=== PATIENT | female | born 1970 | race Caucasian/White ===

== ENCOUNTER 2019-11-17 18:24 | Emergency (ER) | payer MEDICAID ==
[~2019-11-17] VITALS: Ht 157.5 cm; Wt 55.0 kg
--- NOTE | 2019-11-17 19:07 | NUR ---
PT HERE WITH C/O ABDOMINAL PAIN AND RIGHT FLANK PAIN THAT STARTED YESTERDAY AND GOT WORSE THIS MORNING. PT AAO X 4, NAD, ROOM AIR, CALL LIGHT WITHIN REACH, SIDERAIL X [address]. PT STATED "I AM SUPER ITCHY, CAN I GET SOME CREAM? I LIVE AT [facility] AND THEY HAVE BED BUGS AND I HAVE BITES ALL OVER." DIRECTOR MOBILE NOTIFIED, TECH TO SHOWER AND BAG BELONGINGS.
--- NOTE | 2019-11-17 19:36 | NUR ---
AT BEDSIDE FOR EXAM S/P DECON.
[2019-11-17] MEDS ORDERED: ACETAMINOPHEN 500 MG TABLET PO ONE (20:00)
[2019-11-17] MEDS ORDERED: KETOROLAC 30 MG/1 ML IM ONE (20:00)
[2019-11-17] MEDS ORDERED: ONDANSETRON ODT 4 MG PO ONE (20:00)
[2019-11-17 20:02] LABS: BASOPHILS # (AUTO) 0.08 x10^3/uL (0-0.1); BASOPHILS % (AUTO) 1 % (0-1); EOSINOPHILS # (AUTO) 0.15 x10^3/uL (0-0.4); EOSINOPHILS % (AUTO) 1 % (1-7); LYMPHOCYTES # (AUTO) 2.18 x10^3/uL (1-3.4); LYMPHOCYTES % (AUTO) 20 % (22-44); MD NO; MEAN CORPUSCULAR HEMOGLOBIN 28.1 pg (27.0-34.8); MEAN CORPUSCULAR HGB CONC 32.8 g/dL (32.4-35.8); MEAN CORPUSCULAR VOLUME 85.7 fL (80-100); MEAN PLATELET VOLUME 8.6 fL (7.4-10.4); MONOCYTES # (AUTO) 0.69 x10^3/uL (0.2-0.8); MONOCYTES % (AUTO) 6 % (2-9); NEUTROPHILS # (AUTO) 7.81 x10^3/uL (1.8-6.8); NEUTROPHILS % (AUTO) 72 % (42-75); PLATELET COUNT 346 x10^3/uL (130-400); RED BLOOD COUNT 4.51 x10^6/uL (3.82-5.3); RED CELL DISTRIBUTION WIDTH 13.6 % (9.6-15.2)
[2019-11-17] MEDS ORDERED: KETOROLAC 30 MG/1 ML ONE (20:09)
[2019-11-17] MEDS ORDERED: ONDANSETRON ODT 4 MG ONE (20:09)
[2019-11-17] MEDS ORDERED: ACETAMINOPHEN 500 MG TABLET ONE (20:09)
[2019-11-17 20:11] LABS: MICROSCOPIC NOT IND
[2019-11-17 20:13] LABS: ALBUMIN 3.4 g/dL (3.4-5.0); ANION GAP 3 mmol/L (5-15); CALCIUM 8.6 mg/dL (8.5-10.1); CHLORIDE 107 mmol/L (98-107); CREATININE 0.69 mg/dL (0.55-1.02)
--- NOTE | 2019-11-17 20:14 | NUR ---
PT MEDICATED PER ORDER.
[2019-11-17 20:16] LABS: ALANINE AMINOTRANSFERASE 20 U/L (12-78); ALKALINE PHOSPHATASE 76 U/L (45-117); BILIRUBIN,TOTAL 0.2 mg/dL (0.2-1.0); TOTAL PROTEIN 7.2 g/dL (6.4-8.2)
[2019-11-17 20:17] LABS: CULTURE INDICATED? NO
[2019-11-17 20:25] LABS: HCG UR SG 1.019 (1.003-1.030)
--- NOTE | 2019-11-17 20:39 | NUR ---
ALL RESULTS BACK AT THIS TIME, CHART UP FOR RECHECK.
--- NOTE | 2019-11-17 20:47 | NUR ---
REPORT GIVEN TO NETTIE LARIOS. CARE TRANSFERRED AT THIS TIME.
[2019-11-17] MEDS ORDERED: OXYcodone 5 MG/5 ML ORAL.SOL UDC PO ONE (21:00)
[2019-11-17] MEDS ORDERED: OXYcodone 5 MG/5 ML ORAL.SOL UDC ONE (21:05)
--- NOTE | 2019-11-17 21:07 | NUR ---
Pt medicated per MAR, POC discussed. Pt provided with warm blanket per request. Pt states standing helps with the pain, ambulatory with steady gait around her room. Pt denies other needs. Pt's at bedside for support.
--- NOTE | 2019-11-17 22:48 | NUR ---
Pt ambulatory to bathroom with steady gait and back to room. Pt states pain still 5/10 after medications.
[2019-11-17 23:07] VITALS: BP 139/89
== END 2019-11-17 23:08 | disposition home or self-care (01) ==
LOC: ED 23:00
DX: N23 Unspecified renal colic (principal); Z72.89 Other problems related to lifestyle; Z98.51 Tubal ligation status; Z90.49 Acquired absence of other specified parts of digestive tract; Z90.721 Acquired absence of ovaries, unilateral
CPT/HCPCS: 36415; 76770; 80053; 81003; 81025; 83690; 85025; 96372; 99284; J1885; Q0162

== ENCOUNTER 2019-11-19 10:39 | Emergency (ER) | payer MEDICAID ==
[~2019-11-19] VITALS: Ht 157.5 cm; Wt 56.4 kg
[2019-11-19 10:54] VITALS: BP 140/80
--- NOTE | 2019-11-19 11:26 | NUR ---
PATIENT AMBULATED FROM SHOWER ROOM TO TRAUMA 1 WITH A STEADY GAIT.
--- NOTE | 2019-11-19 11:31 | NUR ---
PATIENT AMBULATED TO THE BATHROOM WITH A STEADY GAIT. GIVE URINE CUP.
[2019-11-19] MEDS ORDERED: KETOROLAC 60 MG/2 ML ONE (11:32)
--- NOTE | 2019-11-19 11:36 | NUR ---
THIS IS A 49 YO F W/ C/O RIGHT FLANK PAIN, N/V/D SINCE MONDAY. DENIES URINANRY PAIN OR FREQUENCY. WAS SEEN AT THIS FACILITY ON MONDAY NIGHT. RESPIRATIONS ARE EVEN AND UNLABORED. PATIENT IS IN NO ACUTE DISTRESS. PATIENT IS RESTING ON GURNEY WITH CALL LIGHT IN REACH. DENIES FURTHER NEEDS AT THIS TIME.
[2019-11-19 11:46] LABS: BASOPHILS # (AUTO) 0.11 x10^3/uL (0-0.1); BASOPHILS % (AUTO) 1 % (0-1); EOSINOPHILS # (AUTO) 0.21 x10^3/uL (0-0.4); EOSINOPHILS % (AUTO) 2 % (1-7); LYMPHOCYTES % (AUTO) 18 % (22-44); MD NO; MEAN CORPUSCULAR HEMOGLOBIN 28.4 pg (27.0-34.8); MEAN CORPUSCULAR HGB CONC 32.8 g/dL (32.4-35.8); MEAN CORPUSCULAR VOLUME 86.6 fL (80-100); MEAN PLATELET VOLUME 8.3 fL (7.4-10.4); MONOCYTES # (AUTO) 0.44 x10^3/uL (0.2-0.8); MONOCYTES % (AUTO) 5 % (2-9); NEUTROPHILS # (AUTO) 6.49 x10^3/uL (1.8-6.8); NEUTROPHILS % (AUTO) 73 % (42-75); PLATELET COUNT 342 x10^3/uL (130-400); RED BLOOD COUNT 4.51 x10^6/uL (3.82-5.3)
[2019-11-19 11:47] LABS: MICROSCOPIC NOT IND
[2019-11-19 11:49] LABS: CULTURE INDICATED? NO
[2019-11-19 11:55] LABS: ALBUMIN 3.3 g/dL (3.4-5.0); ANION GAP 3 mmol/L (5-15); CHLORIDE 109 mmol/L (98-107)
[2019-11-19 11:56] LABS: CREATININE 0.82 mg/dL (0.55-1.02)
[2019-11-19] MEDS ORDERED: KETOROLAC 60 MG/2 ML IM ONE (12:00)
--- NOTE | 2019-11-19 12:33 | NUR ---
PATIENT GIVEN HOSPITAL PHONE TO CALL .
== END 2019-11-19 13:12 | disposition home or self-care (01) ==
LOC: ED 12:02
DX: R10.31 Right lower quadrant pain (principal); R10.11 Right upper quadrant pain; Z90.49 Acquired absence of other specified parts of digestive tract; Z98.51 Tubal ligation status; Z90.721 Acquired absence of ovaries, unilateral
CPT/HCPCS: 36415; 74176; 80048; 81003; 82040; 85025; 96372; 99284; J1885

== ENCOUNTER 2019-11-22 15:21 | Emergency (ER) | payer MEDICAID ==
[~2019-11-22] VITALS: Ht 157.5 cm; Wt 55.3 kg
[2019-11-22 15:23] VITALS: BP 109/69
== END 2019-11-22 15:53 | disposition home or self-care (01) ==
LOC: ED 15:45
DX: S50.862A Insect bite (nonvenomous) of left forearm, initial encounter (principal); L03.114 Cellulitis of left upper limb; W57.XXXA Bitten or stung by nonvenomous insect and other nonvenomous arthropods, initial encounter; Y93.89 Activity, other specified; Y92.098 Other place in other non-institutional residence as the place of occurrence of the external cause; Y99.8 Other external cause status
CPT/HCPCS: 99283; Q0177